=== PATIENT | male | born 1950 | race Caucasian/White ===

== ENCOUNTER 2017-03-30 13:09 | Emergency (ER) | payer MEDICARE, OTHER ==
[~2017-03-30] VITALS: Ht 177.8 cm; Wt 65.3 kg
--- NOTE | 2017-03-30 13:10 | NUR ---
PT PRESENTED TO THE ER WITH A C/O URINARY RETENTION. PT TRIED TO GIVE A URINE SAMPLE BUT WAS UNABLE. PT AMBULATED TO BED #1.
[2017-03-30] MEDS ORDERED: LIDOCAINE 2% JEL UROJET 10 ML MM ONE ×3 (13:40→14:00)
--- NOTE | 2017-03-30 13:44 | NUR ---
UROJET USED AND SIMMONS INSERTED. COUDE 16F USED. APPROX 300 ML URINE OUTPUT NOTED IMMEDIATELY.
--- NOTE | 2017-03-30 13:44 | NUR ---
16FR COUDE rodrigues catheter inserted per sterile protocal. Immediate output 300ML of urine, color YELLOW, clarity CLEAR
[2017-03-30 14:04] LABS: BASOPHILS % (AUTO) 0.5 % (0.0-2.0); EOSINOPHILS # (AUTO) 0.1 /CMM (0.0-0.7); EOSINOPHILS % (AUTO) 0.8 % (0.0-6.0); HEMATOCRIT 43 % (39-51); HEMOGLOBIN 14.6 g/dL (13.5-17.5); LYMPHOCYTES # (AUTO) 1.4 /CMM (0.8-4.8); LYMPHOCYTES % (AUTO) 15.3 % (20.0-44.0); MEAN CORPUSCULAR HEMOGLOBIN 30 PG (26.0-33.0); MEAN CORPUSCULAR HGB CONC 34 g/dl (31.0-36.0); MEAN CORPUSCULAR VOLUME 89 fL (80-96); MONOCYTES # (AUTO) 0.6 /CMM (0.1-1.30); MONOCYTES % (AUTO) 6.1 % (2.0-12.0); NEUTROPHILS # (AUTO) 7.3 /CMM (1.8-8.9); NEUTROPHILS % (AUTO) 77.3 % (43.0-81.0); PLATELET COUNT (AUTO) 295 /CMM (150-450); RDW COEFFICIENT OF VARIATION 12.6 (11.5-15.0); RED BLOOD CELL COUNT(AUTO) 4.82 MIL/uL (4.5-6.0); WHITE BLOOD COUNT (AUTO) 9.4 K/uL (4.3-11.0)
[2017-03-30 14:19] LABS: ALBUMIN 3.5 g/dL (3.4-5.0); BILIRUBIN,TOTAL 0.3 mg/dL (0.2-1.0); CALCIUM, SERUM 9.7 mg/dL (8.5-10.1); CREATININE 0.8 mg/dL (0.6-1.3); POTASSIUM 4.1 mmol/L (3.5-5.1); TOTAL PROTEIN, SERUM 7.5 g/dL (6.4-8.2)
--- NOTE | 2017-03-30 14:34 | NUR ---
700ML URINE OUTPUT TOTAL
--- NOTE | 2017-03-30 14:50 | NUR ---
PT APPEARS TO BE RESTING COMFORTABLY.
[2017-03-30 15:18] LABS: APPEARANCE,URINE Clear (CLEAR); BILIRUBIN,URINE Negative (NEGATIVE); BLOOD, URINE Negative Ery/uL (NEGATIVE); COLOR,URINE Yellow (YELLOW); KETONES,URINE Negative (NEGATIVE); LEUKOCYTE ESTERASE ,URINE Negative (NEGATIVE); NITRITE, URINE Negative (NEGATIVE); PROTEIN,URINE Negative (NEGATIVE); UGLUCOSE Negative (NEGATIVE); UROBILINOGEN,URINE 0.2 EU/dL (0.2)
--- NOTE | 2017-03-30 15:35 | NUR ---
Patient discharged to home in stable condition. Written and verbal after care instructions given. Patient verbalizes understanding of instruction AND RX. PT REC'D A LEG BAG TO TAKE HOME AND ONE PLACED ON PT'S SIMMONS. VSS.
--- NOTE | 2017-03-30 15:40 | NUR ---
TOTAL URINE OUTPUT IS 1100ML
[2017-03-30 15:41] VITALS: BP 119/68
== END 2017-03-30 15:41 | disposition home or self-care (01) ==
LOC: ER 13:11
DX: R33.9 Retention of urine, unspecified (principal); N40.0 Benign prostatic hyperplasia without lower urinary tract symptoms; F17.200 Nicotine dependence, unspecified, uncomplicated
CPT/HCPCS: 36415; 51702; 80053; 81001; 85025; 99284; A4606; J3490 ×2; 81000-TC; Z7610

== ENCOUNTER 2022-08-01 19:47 | Inpatient (IN) | payer MEDICARE, OTHER ==
[~2022-08-01] VITALS: Ht 177.8 cm; Wt 68.9 kg
--- NOTE | 2022-08-01 20:00 | NUR ---
BIBRA 79 FROM HOME FOR GENRALIZED WEAKNESS, HAND SWELLING AND R FACIAL DROOP FOR THE PAST FEW DAYS. TESTED + FOR COVID ABOUT 2 WKS AGO. PLACED IN BED, AWAKE- NOT RESPONDING TO VERBAL STIMULI, BREATHING EVEN AND UNLABORED SATURATING AT 97%RA.
--- NOTE | 2022-08-01 20:12 | NUR ---
TYLER VANN: [phone]
[2022-08-01] MEDS ORDERED: IV NS 0.9% 1,000 ML BAG IV ONE (20:30)
--- NOTE | 2022-08-01 20:31 | NUR ---
ROBERTID SWABBED, SENT TO LAB.
[2022-08-01 20:38] LABS: BASOPHILS % (AUTO) 0.1 % (0.0-2.0); EOSINOPHILS % (AUTO) 1.2 % (0.0-6.0); HEMATOCRIT 31 % (39-51); HEMOGLOBIN 10.2 g/dL (13.5-17.5); LYMPHOCYTES # (AUTO) 2.1 K/uL (0.8-4.8); LYMPHOCYTES % (AUTO) 16.4 % (20.0-44.0); MEAN CORPUSCULAR HGB CONC 33 g/dl (31.0-36.0); MEAN CORPUSCULAR VOLUME 89 fL (80-96); MONOCYTES # (AUTO) 1.5 K/uL (0.1-1.30); MONOCYTES % (AUTO) 11.6 % (2.0-12.0); NEUTROPHILS # (AUTO) 9.1 K/uL (1.8-8.9); NEUTROPHILS % (AUTO) 70.7 % (43.0-81.0); PLATELET COUNT (AUTO) 589 K/uL (150-450); RED BLOOD CELL COUNT(AUTO) 3.45 MIL/uL (4.5-6.0); WHITE BLOOD COUNT (AUTO) 12.9 K/uL (4.3-11.0)
[2022-08-01 20:55] LABS: ALANINE AMINOTRANSFERASE 23 U/L (12-78); ALBUMIN 2.2 g/dL (3.4-5.0); ALKALINE PHOSPHATASE 124 U/L (46-116); ASPARTATE AMINOTRANSFERASE 32 U/L (15-37); BILIRUBIN,DIRECT 0.1 mg/dL (0.0-0.2); BILIRUBIN,TOTAL 0.4 mg/dL (0.2-1.0); CALCIUM, SERUM 8.4 mg/dL (8.5-10.1); CARBON DIOXIDE 25 mmol/L (21-32); CHLORIDE 103 mmol/L (98-107); CREATININE 0.8 mg/dL (0.6-1.3); GLUCOSE 113 mg/dL (74-106); SODIUM SERUM 138 mmol/L (136-145); TOTAL PROTEIN, SERUM 7.1 g/dL (6.4-8.2); UREA NITROGEN, BLOOD 11 mg/dL (7-18)
[2022-08-01 20:57] LABS: SERUM AMMONIA 27 umol/L (11-32)
[2022-08-01 20:58] LABS: ACETAMINOPHEN < 10 ug/ml (10-30)
--- NOTE | 2022-08-01 21:05 | NUR ---
URINE COLLECTED, SENT TO LAB
--- NOTE | 2022-08-01 21:15 | NUR ---
BROUGHT TO CT DEPT
--- NOTE | 2022-08-01 21:18 | NUR ---
EPIC PANEL PAGED
--- NOTE | 2022-08-01 21:23 | NUR ---
KRYS SÁNCHEZ ON THE PHONE WITH DR GARCIA
[2022-08-01 21:50] LABS: BILIRUBIN,URINE NEGATIVE (NEGATIVE); COLOR,URINE YELLOW (YELLOW); LEUKOCYTE ESTERASE ,URINE NEGATIVE (NEGATIVE); NITRITE, URINE NEGATIVE (NEGATIVE); PH,URINE 7.5 (5.0-8.0); PROTEIN,URINE NEGATIVE (NEGATIVE); UGLUCOSE NEGATIVE (NEGATIVE); UROBILINOGEN,URINE 0.2 EU/dL (0.2)
--- NOTE | 2022-08-01 22:20 | NUR ---
REPORT GIVEN TO ROYAL GRANT [id number] FOR RIA
--- NOTE | 2022-08-01 22:55 | NUR ---
ELL TEACHERBED LABORER NOTE RECEIVED REPORT FROM ER NURSE RUDDY. PT IS ADMITTED TO TELE IN ROOM 326-1 WITH DIAGNOSIS OF AMS, AND FAILURE TO THRIVE. PT ARRIVES VIA GURNEY, ACCOMPANIED BY ER NURSE. PT ALERT, NON-VERBAL, UNABLE TO COMMUNICATE NEEDS. NO RESPIRATORY DISTRESS,NO SOB NOTED. PT ON ROOM AIR, TOLERATING RA WELL. IV ACCESS TO RIGHT FA #22G, PATENT, AND FLUSHING WELL. BELONGINGS CHECKED, AND BELONGING LIST PLACED IN CHART. SKIN ASSESSMENT COMPLETED. PT HAS REDNESS TO ADORE HEELS, TO SACRAL AREA, TO SCROTUM, TO PENIS, AND LEFT EYE. BILATERAL HANDS EDEMA, AND BLE PITTING EDEMA. FACIAL DROOP TO LEFT SIDE NOTED. HOB ELEVATED. SAFETY MEASURES IMPLEMENTED: BED LOCKED, IN LOW POSITION, SIDE RAILS UP X3, CALL LIGHT WITHIN REACH. WILL CONTINUE TO MONITOR PT.
[2022-08-02] VITALS: BP 161/75
[2022-08-02] MEDS ORDERED: MAGNESIUM HYDROXIDE 30 ML UDC PO PRN
[2022-08-02] MEDS ORDERED: ENOXAPARIN SODIUM 40 MG/0.4 ML DISP.SYRIN SQ SCH
[2022-08-02] MEDS ORDERED: ACETAMINOPHEN 325 MG TABLET PO PRN
[2022-08-02] MEDS ORDERED: ONDANSETRON HCL/PF 4 MG/2 ML VIAL IVP PRN
[2022-08-02] MEDS ORDERED: Z GUARD REMEDY 4 OZ OINT TP PRN
[2022-08-02 04:00] VITALS: BP 153/74
[2022-08-02 06:54] LABS: BASOPHILS % (AUTO) 0.2 % (0.0-2.0); EOSINOPHILS % (AUTO) 0.9 % (0.0-6.0); HEMATOCRIT 30 % (39-51); LYMPHOCYTES % (AUTO) 18.2 % (20.0-44.0); MEAN CORPUSCULAR HGB CONC 33 g/dl (31.0-36.0); MEAN CORPUSCULAR VOLUME 89 fL (80-96); MONOCYTES # (AUTO) 1.1 K/uL (0.1-1.30); MONOCYTES % (AUTO) 9.8 % (2.0-12.0); NEUTROPHILS # (AUTO) 7.9 K/uL (1.8-8.9); NEUTROPHILS % (AUTO) 70.9 % (43.0-81.0); PLATELET COUNT (AUTO) 566 K/uL (150-450); RED BLOOD CELL COUNT(AUTO) 3.38 MIL/uL (4.5-6.0); WHITE BLOOD COUNT (AUTO) 11.2 K/uL (4.3-11.0)
--- NOTE | 2022-08-02 06:54 | NUR ---
SOCIAL MEDIA CAMPAIGN MANAGER CLOSING NOTE LEFT PATIENT IN BED SLEEPING. PT ALERT, UNABLE TO VERBALIZED NEEDS., NONVERBAL. ON GANG PLANK WORKMAN WITH CURRENT READING : SINUS TACHY @122 BPM. HEAD OF BED ELEVATED. IV ACCESS ON RIGHT FOREARM GAUGE 20 PATENT, INTACT, AND SALINE LOCKED. NO S/S OF PAIN OR DISCOMFORT AT THIS TIME. SAFETY MEASURES MAINTAINED: BED LOCKED AND IN LOWEST POSITION, SIDE RAILS UP X 2. CALL LIGHT WITHIN REACH. WILL ENDORSE PT TO INCOMING NURSE FOR RIA.
[2022-08-02 07:00] VITALS: BP 140/85
[2022-08-02 07:40] LABS: IRON, SERUM 21 ug/dl (50-175); TOTAL IRON BINDING CAPACITY 122 ug/dl (250-450)
[2022-08-02 08:08] LABS: CALCIUM, SERUM 8.6 mg/dL (8.5-10.1); CARBON DIOXIDE 22 mmol/L (21-32); CHLORIDE 107 mmol/L (98-107); CREATININE 0.7 mg/dL (0.6-1.3); GLUCOSE 89 mg/dL (74-106); MAGNESIUM 2.1 mg/dL (1.8-2.4); PHOSPHORUS 2.8 mg/dL (2.5-4.9); POTASSIUM 3.7 mmol/L (3.5-5.1); SODIUM SERUM 139 mmol/L (136-145); UREA NITROGEN, BLOOD 8 mg/dL (7-18)
[2022-08-02 08:10] LABS: FERRITIN 732 ng/mL (8-388); THYROID STIMULATING HORMONE 1.848 uIU/mL (0.358-3.74)
--- NOTE | 2022-08-02 08:15 | NUR ---
RN OPENING NOTE PATIENT AWAKE IN BED RESTING, A/O X 0 NON-VERVAL. NO S/S OF PAIN NOTED AT THIS TIME. ON ROOM AIR, BREATHING EVEN UNLABORED, NO DISTRESS OR SHORTNESS OF BREATH NOTED. IV ACCESS RFA #20G, INTACT, PATENT AND FLUSHING WELL. PATIENT WITH EXTERNAL REGISTERED MEDICAL TRANSCRIPTIONIST WITH CURRENT READING OF ST AND HR OF 122, NO CARDIAC DISTRESS NOTED. FALL AND SAFETY MEASURES IN PLACE, BED ALARM ON, BED IN LOW AND LOCK POSITION, CALL LIGHT AND TABLE WITHIN EASY REACH, SIDE RAILS UP X2. WILL CONTINUE TO MONITOR.
[2022-08-02] MEDS: PANTOPRAZOLE 40 MG TABLET.DR PO SCH ×2 (09:23→16:11)
[2022-08-02] MEDS ORDERED: BETH50TA2 PO (10:28)
[2022-08-02] MEDS ORDERED: CYAN500T64 PO (10:28)
[2022-08-02] MEDS ORDERED: OMEP20CA15 PO (10:28)
[2022-08-02] MEDS ORDERED: FINA5TAB11 PO (10:28)
[2022-08-02] MEDS ORDERED: APIX5TAB PO (10:28)
[2022-08-02] MEDS ORDERED: ASPI-1169 PO (10:28)
[2022-08-02] MEDS ORDERED: METO25TA20 PO (10:28)
[2022-08-02] MEDS ORDERED: FLUT16SP (10:28)
[2022-08-02] MEDS ORDERED: ACET-2605 PO (10:28)
[2022-08-02] MEDS ORDERED: MEGE40TA5 PO (10:28)
[2022-08-02] MEDS ORDERED: ARIP10TA57 PO (10:28)
[2022-08-02] MEDS ORDERED: FLUTICASONE PROPIONATE 16 GM BOTTLE NS PRN (11:00)
[2022-08-02] MEDS ORDERED: ACETAMINOPHEN ES 500 MG TABLET PO PRN (11:00)
[2022-08-02] MEDS: CYANOCOBALAMIN 500 MCG TABLET PO SCH (11:00)
[2022-08-02] MEDS ORDERED: BETHANECHOL CHLORIDE 50 MG TABLET PO SCH (13:00)
[2022-08-02] MEDS: MEGESTROL ACETATE 40 MG TABLET PO SCH ×3 (13:05→18:31)
[2022-08-02] MEDS: FINASTERIDE (5 MG) 5 MG TABLET PO SCH (13:05)
[2022-08-02] MEDS: ENSURE ENLIVE 237 ML LIQUID (VANILLA) PO SCH ×2 (13:06→16:11)
[2022-08-02] MEDS: ASPIRIN 81 MG TAB.CHEW PO SCH (13:06)
[2022-08-02] MEDS: METOPROLOL TARTRATE 25 MG TABLET PO SCH ×2 (13:13→16:10)
[2022-08-02] MEDS: CLINDAMYCIN 600 MG in IV D5W 50 ML IV SCH ×2 (13:14→20:09)
--- NOTE | 2022-08-02 13:40 | NUR ---
RN NOTE PATIENT B12 VITAMIN FOR 1100 WAS NOT ADMINISTERED. MEDICATION IS NOT IN THE PYXIS, BOTH PYXIS WERE CHECKED, PHARMACY WAS CALLED X2, PHARMACY AWARE.
[2022-08-02 16:00] VITALS: BP 113/55
[2022-08-02] MEDS: BETHANECHOL CHLORIDE (25 MG) 25 MG TABLET PO SCH (16:10)
[2022-08-02] MEDS: APIXABAN 5 MG TABLET PO SCH (16:14)
--- NOTE | 2022-08-02 18:41 | NUR ---
RN CLOSING NOTE PATIENT AWAKE IN BED RESTING, A/O X 0 NON-VERBAL. NO S/S OF PAIN NOTED AT THIS TIME. ON 2L OXYGEN VIA NC, BREATHING EVEN UNLABORED, NO DISTRESS OR SHORTNESS OF BREATH NOTED. IV ACCESS RFA #20G, INTACT, PATENT AND FLUSHING WELL. PATIENT WITH EXTERNAL LEARNING STRATEGIST WITH CURRENT READING OF ST AND HR OF 120, NO CARDIAC DISTRESS NOTED. SCHEDULE MEDICATIONS ADMINISTERED. SKIN CARE IMPLEMENTED. PATIENT WAS TURNED AND REPOSITIONED PER PROTOCOL. FALL AND SAFETY MEASURES IN PLACE, BED ALARM ON, BED IN LOW AND LOCK POSITION, CALL LIGHT AND TABLE WITHIN EASY REACH, SIDE RAILS UP X2. ALL NEEDS ATTENDED AND ANTICIPATED. WILL ENDORSE TO PRINTED CIRCUIT BOARDS INSPECTOR NURSE.
--- NOTE | 2022-08-02 19:30 | NUR ---
noc rn note received patient in bed with eyes closed, arousable to pain, non-verbal . no s/s of apparent distress on 2lpm of o2 via nc. not exhibiting pain via flacc. reading sr on the tele monitor with 89 bpm at this time. right forearm #20g intact, patent, on saline lock. safety in place-- bed in lowest, locked position, side rails up X4, call light within reach, swallow precaution in place. will cont. with patient's plan of care.
[2022-08-02 20:00] VITALS: BP 97/47
[2022-08-03] VITALS: BP 120/65
[2022-08-03 03:45] VITALS: BP 120/65
[2022-08-03 04:00] VITALS: BP 122/65
[2022-08-03] MEDS: CLINDAMYCIN 600 MG in IV D5W 50 ML IV SCH (04:05)
[2022-08-03 06:26] LABS: BASOPHILS % (AUTO) 0.1 % (0.0-2.0); EOSINOPHILS % (AUTO) 1.7 % (0.0-6.0); HEMATOCRIT 30 % (39-51); HEMOGLOBIN 10.1 g/dL (13.5-17.5); LYMPHOCYTES # (AUTO) 0.8 K/uL (0.8-4.8); LYMPHOCYTES % (AUTO) 8.5 % (20.0-44.0); MEAN CORPUSCULAR HGB CONC 33 g/dl (31.0-36.0); MEAN CORPUSCULAR VOLUME 90 fL (80-96); MONOCYTES # (AUTO) 0.5 K/uL (0.1-1.30); MONOCYTES % (AUTO) 5.6 % (2.0-12.0); NEUTROPHILS # (AUTO) 8.1 K/uL (1.8-8.9); NEUTROPHILS % (AUTO) 84.1 % (43.0-81.0); PLATELET COUNT (AUTO) 559 K/uL (150-450); RED BLOOD CELL COUNT(AUTO) 3.38 MIL/uL (4.5-6.0); WHITE BLOOD COUNT (AUTO) 9.6 K/uL (4.3-11.0)
[2022-08-03 06:41] LABS: CALCIUM, SERUM 8.1 mg/dL (8.5-10.1); CARBON DIOXIDE 25 mmol/L (21-32); CHLORIDE 104 mmol/L (98-107); CREATININE 0.8 mg/dL (0.6-1.3); GLUCOSE 117 mg/dL (74-106); PHOSPHORUS 2.7 mg/dL (2.5-4.9); POTASSIUM 3.2 mmol/L (3.5-5.1); SODIUM SERUM 136 mmol/L (136-145); UREA NITROGEN, BLOOD 11 mg/dL (7-18)
[2022-08-03 07:00] VITALS: BP 134/68
--- NOTE | 2022-08-03 07:05 | NUR ---
LIGHT TECHNICIAN OPENING NOTE RECEIVED PATIENT RESTING IN BED , AROUSABLE, A/O X 0 NON-VERVAL. NO S/S OF PAIN NOTED AT THIS TIME. ON ROOM AIR, BREATHING EVEN UNLABORED, NO DISTRESS OR SHORTNESS OF BREATH NOTED. IV ACCESS RFA #20G, INTACT, PATENT AND FLUSHING WELL. PATIENT WITH EXTERNAL EXPLOSIVES MIXER OPERATOR WITH CURRENT READING OF ST AND HR OF 110, NO CARDIAC DISTRESS NOTED. FALL AND SAFETY MEASURES IN PLACE, BED ALARM ON, BED IN LOW AND LOCK POSITION, CALL LIGHT AND TABLE WITHIN EASY REACH, SIDE RAILS UP X2. WILL CONTINUE TO MONITOR.
--- NOTE | 2022-08-03 07:20 | NUR ---
noc rn closing patient in bed, with eyes closed easy to arouse. no s/s of apparent distress on 2lpm of o2 via nc. not exhibiting pain via flacc. patient IV access on saline lock, right fa #20g. reading ST 110bpm at this time. all needs attended. all scheduled meds administered. safety kept in place. report given to RUDY Ellis for continuity of patient care.
[2022-08-03] MEDS: ASPIRIN 81 MG TAB.CHEW PO SCH (08:07)
[2022-08-03] MEDS: CYANOCOBALAMIN 500 MCG TABLET PO SCH (08:07)
[2022-08-03] MEDS: FINASTERIDE (5 MG) 5 MG TABLET PO SCH (08:07)
[2022-08-03] MEDS: PANTOPRAZOLE 40 MG TABLET.DR PO SCH ×3 (08:08→17:00)
[2022-08-03] MEDS: BETHANECHOL CHLORIDE (25 MG) 25 MG TABLET PO SCH ×3 (08:08→17:00)
[2022-08-03] MEDS: MEGESTROL ACETATE 40 MG TABLET PO SCH ×3 (08:09→17:00)
[2022-08-03] MEDS: METOPROLOL TARTRATE 25 MG TABLET PO SCH ×2 (08:10→17:00)
[2022-08-03] MEDS: APIXABAN 5 MG TABLET PO SCH ×2 (08:11→17:00)
[2022-08-03] MEDS: ENSURE ENLIVE 237 ML LIQUID (VANILLA) PO SCH ×3 (08:12→17:00)
--- NOTE | 2022-08-03 09:23 | NUR ---
WOUND CARE CONSULT: PT PRESENTS WITH RASH TO GROIN FOLDS, PERINEUM AND INNER BUTTOCKS, SCARRING TO BILATERAL HIPS, AND VERY BONY SACRAL AREA, PRESENT ON ADMISSION. PT IS VERY THIN AND BONY. RECOMMENDATIONS MADE FOR SKIN PROTECTION AND SKIN CARE. DISCUSSED WITH NURSING STAFF. IN AGREEMENT WITH PLAN OF CARE. FIRST STEP LOW AIRLOSS MATTRESS IS ON ORDER. Addendum: 08/03/22 at 0925 by JANAE JHA WNDNU Amended: Links added.
[2022-08-03] MEDS ORDERED: POTASSIUM CHLORIDE 20 MEQ TAB.PRT.SR PO SCH (09:30)
[2022-08-03 11:34] LABS: ABG BASE EXCESS 1.1 mmol/L; ABG OXYGEN SATURATION 94.3 % (92.0-98.5); ABG PCO2 30.6 mmHg (35.0-45.0); ABG PH 7.504 (7.350-7.450); ABG PO2 70.1 mmHg (75.0-100.0); AaDO2 93.4 mmHg; COHb 0.6 % (0.5-1.5); MetHb 0.3 % (0.0-1.5); O2Hb 93.5 % (94.0-97.0); SITE, ABG Right Radial; VENT MODE, BG NASAL CANNULA
[2022-08-03] MEDS ORDERED: CLINDAMYCIN HCL 150 MG CAPSULE PO SCH (12:00)
[2022-08-03] MEDS: CEFTRIAXONE 1 G in IV D5W 50 ML IV SCH (12:06)
[2022-08-03] MEDS: METRONIDAZOLE 500MG/ NS 100ML 500 MG in PREMIX 1 EA IV SCH ×2 (13:31→17:25)
[2022-08-03 16:00] VITALS: BP 132/66
--- NOTE | 2022-08-03 16:50 | NUR ---
PATIENT IS NON-VERBAL. UNABLE TO CONTACT PATIENT'S SON, ([phone]) CALLED 3X SEEMS LIKE TEL LINE CONNECTION ISSUE. LEFT A MESSAGE TO SIGN IN BEHALF OF THE PATIENT FOR MRI MEDICAL HISTORY AND CONSENT
[2022-08-03] MEDS: CLOTRIMAZOLE 1% 15 GM TUBE TP SCH (17:15)
--- NOTE | 2022-08-03 19:40 | NUR ---
OCEANOLOGIST NOTES RECEIVED PATIENT IN BED WITH CLOSED EYES. OPENS HIS EYES UPON CALLING HIS NAME. PATIENT IS NON VERBAL. NO PAIN NOTED. NO FACIAL GRIMACING NOTED. ON TELE MONITOR READING S ST 105. IV ACCESS ON THE RFA G # 20 INTACT . PATIENT'S SON AND AT THE BED SIDE. THEY WERE FILLING OUT CONSENTS FOR MRI. FAMILY CONCERN FOR THE PATIENT'S UNDER EYE AND HANDS SWELLINGS. SON STATED THEY ARE WAITING FOR THE DOCTOR TO CALL THEM. GAVE THE SON THE EPIC NUMBER AND TOLD HIM THAT THE FAMILY MUST CONTACT THE DOCTOR. FAMILY WERE VERY CONCERN FOR THE PATIENT'S CONDITION. THEY SPOKE WITH OUTER DIAMETER GRINDER DOCTOR BUTCH SÁNCHEZ. ALL NEEDS ATTENDED. ALL SAFETY MEASURES IN PLACE. BED LOCKED IN THE LOWEST POSITION. CALL LIGHT AND TABLE IN EASY REACH. SIDE RAILS UP TIMES 2. GOT THE SON'S MARGARETH TELEPHONE NUMBER [phone] . I TOLD HIS SON WILL CALL HIM IF ANY UPDATES OR RIA NOTED. WILL CONTINUE TO MONITOR CLOSELY.
--- NOTE | 2022-08-03 19:45 | NUR ---
RN CLOSING NOTE PATIENT AWAKE IN BED RESTING, A/O X 0 NON-VERBAL. NO S/S OF PAIN NOTED AT THIS TIME. ON 2L OXYGEN VIA NC, BREATHING EVEN UNLABORED, NO DISTRESS OR SHORTNESS OF BREATH NOTED. IV ACCESS RFA #20G, INTACT, PATENT AND FLUSHING WELL. PATIENT WITH EXTERNAL LANG INTERPRETER WITH CURRENT READING OF ST AND HR OF 111, NO CARDIAC DISTRESS NOTED. SCHEDULE MEDICATIONS ADMINISTERED. SKIN CARE IMPLEMENTED. PATIENT WAS TURNED AND REPOSITIONED PER PROTOCOL. FALL AND SAFETY MEASURES IN PLACE, BED ALARM ON, BED IN LOW AND LOCK POSITION, CALL LIGHT AND TABLE WITHIN EASY REACH, SIDE RAILS UP X2. ALL NEEDS ATTENDED AND ANTICIPATED. PATIENT'S FAMILY ON BEDSIDE, NOTED AND SIGNED MRI MEDICAL HISTORY FORM. PATIENT ENDORSED TO THE CAKE DECORATOR NURSE FOR RIA.
[2022-08-03] MEDS: IV NS 0.9% 1,000 ML IV PRN (20:21)
[2022-08-03] MEDS: ENOXAPARIN SODIUM 60 MG/0.6 ML DISP.SYRIN SQ SCH (20:31)
[2022-08-03 20:39] VITALS: BP_SYST 130; BP_SYST 142; BP_DIAS 73; BP_DIAS 85
--- NOTE | 2022-08-03 21:00 | NUR ---
RN NOTES INFORMED BUTCH SÁNCHEZ FOR THE FAMILY CONCERNS OF SWELLING OF THE HANDS AND UNDER EYE . ALSO FACIAL REDNESS. STARTED IV HYDRATION OF NS AT 75 ML/HR. PER ORDER AT 2029. NO NEW ORDER WAS GIVEN. WILL CONTINUE TO MONITOR CLOSELY FOR ANY CHANGES.
[2022-08-04] MEDS: METRONIDAZOLE 500MG/ NS 100ML 500 MG in PREMIX 1 EA IV SCH ×5 (00:02→23:26)
[2022-08-04 00:50] VITALS: BP 134/84
[2022-08-04 04:26] VITALS: BP 105/71
[2022-08-04 06:41] LABS: CALCIUM, SERUM 8.5 mg/dL (8.5-10.1); CARBON DIOXIDE 24 mmol/L (21-32); CHLORIDE 109 mmol/L (98-107); CREATININE 0.8 mg/dL (0.6-1.3); GLUCOSE 88 mg/dL (74-106); MAGNESIUM 2.3 mg/dL (1.8-2.4); PHOSPHORUS 3.4 mg/dL (2.5-4.9); POTASSIUM 3.7 mmol/L (3.5-5.1); SODIUM SERUM 142 mmol/L (136-145); UREA NITROGEN, BLOOD 14 mg/dL (7-18)
[2022-08-04 06:54] LABS: BASOPHILS % (AUTO) 0.2 % (0.0-2.0); EOSINOPHILS % (AUTO) 3.4 % (0.0-6.0); HEMATOCRIT 33 % (39-51); HEMOGLOBIN 10.8 g/dL (13.5-17.5); LYMPHOCYTES # (AUTO) 0.9 K/uL (0.8-4.8); LYMPHOCYTES % (AUTO) 10.1 % (20.0-44.0); MEAN CORPUSCULAR HGB CONC 33 g/dl (31.0-36.0); MEAN CORPUSCULAR VOLUME 92 fL (80-96); MONOCYTES % (AUTO) 10.8 % (2.0-12.0); NEUTROPHILS # (AUTO) 6.9 K/uL (1.8-8.9); NEUTROPHILS % (AUTO) 75.5 % (43.0-81.0); PLATELET COUNT (AUTO) 660 K/uL (150-450); RED BLOOD CELL COUNT(AUTO) 3.62 MIL/uL (4.5-6.0); WHITE BLOOD COUNT (AUTO) 9.2 K/uL (4.3-11.0)
[2022-08-04 07:00] VITALS: BP 161/89
--- NOTE | 2022-08-04 07:30 | NUR ---
MAC DEVELOPER CLOSING NOTES PATIENT IN BED WITH CLOSED EYES. OPENS HIS EYES UPON CALLING HIS NAME. PATIENT IS NON VERBAL. NO PAIN NOTED. NO FACIAL GRIMACING NOTED. ON TELE MONITOR READING ST 110. IV ACCESS ON THE RFA G # 20 INTACT .RUNNING NS AT 75 ML/HR. ALL DUE MEDS GIVEN ORDERED.LOW GRADE FEVER NOTED. COOLING MEASURES DONE. ALL NEEDS ATTENDED. ALL SAFETY MEASURES IN PLACE. BED LOCKED IN THE LOWEST POSITION. CALL LIGHT AND TABLE IN EASY REACH. SIDE RAILS UP TIMES 2. HOB ELEVATED FOR ASPIRATION PRECAUTION. GOT THE SON'S MARGARETH TELEPHONE NUMBER [phone] . WILL ENDORDE FOR RIA.
--- NOTE | 2022-08-04 07:35 | NUR ---
ms rn received pt on bed, sleeping, non verbal patient, came in w/ failure to thrive,room air, sinus rythm, sinus tach on tele, respirations even and unlabored, abdomen soft/ positive bowel sounds, no s/s of pain at this time, repositioned for comfort, will monitor patient.
--- NOTE | 2022-08-04 07:50 | NUR ---
MRI ON HOLD PER DR. PAGAN, HE WILL LET US KNOW.
--- NOTE | 2022-08-04 08:30 | NUR ---
ms rn patient npo art this time, meds held.
[2022-08-04] MEDS: CLOTRIMAZOLE 1% 15 GM TUBE TP SCH ×2 (09:00→17:46)
[2022-08-04] MEDS: APIXABAN 5 MG TABLET PO SCH ×2 (09:00→17:27)
--- NOTE | 2022-08-04 10:30 | NUR ---
ms rn was seen by brittney sheriff/lew to feed patient, family at bed side, patient tolerating puree diet well.
[2022-08-04] MEDS: PANTOPRAZOLE 40 MG TABLET.DR PO SCH (11:15)
[2022-08-04] MEDS: MEGESTROL ACETATE 40 MG TABLET PO SCH ×3 (11:16→17:27)
[2022-08-04] MEDS: BETHANECHOL CHLORIDE (25 MG) 25 MG TABLET PO SCH ×3 (11:17→17:27)
[2022-08-04] MEDS: ASPIRIN 81 MG TAB.CHEW PO SCH (11:17)
[2022-08-04] MEDS: METOPROLOL TARTRATE 25 MG TABLET PO SCH ×2 (11:17→17:28)
[2022-08-04] MEDS: FINASTERIDE (5 MG) 5 MG TABLET PO SCH (11:17)
[2022-08-04] MEDS: CYANOCOBALAMIN 500 MCG TABLET PO SCH (11:18)
[2022-08-04] MEDS: ENOXAPARIN SODIUM 60 MG/0.6 ML DISP.SYRIN SQ SCH (11:19)
[2022-08-04] MEDS ORDERED: METOPROLOL TARTRATE INJ 5 MG/5 ML AMPUL IVP ONE (11:30)
[2022-08-04 12:00] VITALS: BP 112/55
[2022-08-04] MEDS: ENSURE ENLIVE 237 ML LIQUID (VANILLA) PO SCH ×3 (12:28→17:47)
[2022-08-04] MEDS: CEFTRIAXONE 1 G in IV D5W 50 ML IV SCH (12:50)
[2022-08-04] MEDS: IV NS 0.9% 1,000 ML IV PRN (12:54)
[2022-08-04] MEDS ORDERED: METOPROLOL TARTRATE INJ 5 MG/5 ML AMPUL IVP PRN (14:30)
--- NOTE | 2022-08-04 17:55 | NUR ---
ms rn due meds given, repositioned for comfort, no distress noted, all needs attended.
--- NOTE | 2022-08-04 19:50 | NUR ---
CONSTRUCTION MGR OPENING NOTES RECEIVED PATIENT IN BED WITH CLOSED EYES. OPENS HIS EYES UPON CALLING HIS NAME. PATIENT IS NON VERBAL. NO PAIN NOTED. NO FACIAL GRIMACING NOTED. ON TELE MONITOR READING ST 110. IV ACCESS ON THE RFA #20G RUNNING NS AT 75 ML/HR, INFUSING WELL. WILL MAINTAIN SAFETY MEASURES WITH BED LOCKED AND LOWEST POSITION. CALL LIGHT AND TABLE IN EASY REACH. SIDE RAILS UP X 2. HOB ELEVATED FOR ASPIRATION PRECAUTION. WILL MONITOR THE PATIENT AND WILL CARRY OUT ANY ONGOING AND ACTIVE MD ORDERS.
[2022-08-04 20:00] VITALS: BP 111/59
[2022-08-04 22:00] VITALS: BP 111/59
[2022-08-05] VITALS: BP 129/87
[2022-08-05 04:00] VITALS: BP 149/76
[2022-08-05] MEDS: IV NS 0.9% 1,000 ML IV PRN (04:25)
[2022-08-05] MEDS: METRONIDAZOLE 500MG/ NS 100ML 500 MG in PREMIX 1 EA IV SCH (05:11)
[2022-08-05 06:39] LABS: BASOPHILS % (AUTO) 0.2 % (0.0-2.0); EOSINOPHILS % (AUTO) 4.4 % (0.0-6.0); HEMATOCRIT 30 % (39-51); LYMPHOCYTES # (AUTO) 1.1 K/uL (0.8-4.8); MEAN CORPUSCULAR HGB CONC 33 g/dl (31.0-36.0); MEAN CORPUSCULAR VOLUME 89 fL (80-96); MONOCYTES % (AUTO) 9.9 % (2.0-12.0); NEUTROPHILS # (AUTO) 7.6 K/uL (1.8-8.9); NEUTROPHILS % (AUTO) 74.5 % (43.0-81.0); PLATELET COUNT (AUTO) 604 K/uL (150-450); WHITE BLOOD COUNT (AUTO) 10.3 K/uL (4.3-11.0)
[2022-08-05 06:44] LABS: CALCIUM, SERUM 7.9 mg/dL (8.5-10.1); CREATININE 0.7 mg/dL (0.6-1.3); MAGNESIUM 2.2 mg/dL (1.8-2.4); PHOSPHORUS 2.2 mg/dL (2.5-4.9); POTASSIUM 3.7 mmol/L (3.5-5.1)
--- NOTE | 2022-08-05 07:14 | NUR ---
PRESCHOOL SPECIAL EDUCATION TEACHER CLOSING NOTES PATIENT IN BED WITH CLOSED EYES. PATIENT IS NON VERBAL. NO PAIN NOTED. NO FACIAL GRIMACING NOTED. ON TELE MONITOR READING ST @ 103. IV ACCESS ON THE RFA #20G RUNNING NS AT 75 ML/HR, INFUSING WELL. SAFETY MEASURES MAINTAINED WITH BED LOCKED AND LOWEST POSITION. CALL LIGHT AND TABLE IN EASY REACH. SIDE RAILS UP X 2. HOB ELEVATED FOR ASPIRATION PRECAUTION. WILL ENDORSE TO THE NEXT SHIFT.
--- NOTE | 2022-08-05 07:25 | NUR ---
ms rn received on bed, sleeping, arousable, on room air w/ 97% saturation, came in w/ failure to thrive, contracted upper and lower extremities,repositioned for comfort, all needs attended.
[2022-08-05 08:00] VITALS: BP 157/71
[2022-08-05] MEDS ORDERED: NEUTRA PHOS 1 POWD.PACKET PO ONE (09:00)
[2022-08-05] MEDS: FINASTERIDE (5 MG) 5 MG TABLET PO SCH (09:33)
[2022-08-05] MEDS: BETHANECHOL CHLORIDE (25 MG) 25 MG TABLET PO SCH ×3 (09:33→16:49)
[2022-08-05] MEDS: CYANOCOBALAMIN 500 MCG TABLET PO SCH (09:33)
[2022-08-05] MEDS: MEGESTROL ACETATE 40 MG TABLET PO SCH ×3 (09:33→16:53)
[2022-08-05] MEDS: ASPIRIN 81 MG TAB.CHEW PO SCH (09:33)
[2022-08-05] MEDS: METOPROLOL TARTRATE 25 MG TABLET PO SCH ×2 (09:34→16:53)
[2022-08-05] MEDS: APIXABAN 5 MG TABLET PO SCH ×2 (09:35→16:51)
[2022-08-05] MEDS: ENSURE ENLIVE 237 ML LIQUID (VANILLA) PO SCH ×3 (09:35→17:01)
--- NOTE | 2022-08-05 09:40 | NUR ---
ms bolton breakfast served,due meds given,tolerated well.
[2022-08-05] MEDS: PANTOPRAZOLE 40 MG TABLET.DR PO SCH (09:48)
[2022-08-05] MEDS: CLOTRIMAZOLE 1% 15 GM TUBE TP SCH ×2 (09:48→17:01)
[2022-08-05] MEDS: CEFTRIAXONE 1 G in IV D5W 50 ML IV SCH (11:50)
[2022-08-05] MEDS: METRONIDAZOLE 500 MG TABLET PO SCH ×2 (13:49→17:01)
--- NOTE | 2022-08-05 14:57 | NUR ---
ms rn went down to mri.
--- NOTE | 2022-08-05 15:30 | NUR ---
ms rn texted wil, mri can not be done, due to pt's neck is contracted.
[2022-08-05 16:02] VITALS: BP 115/54
[2022-08-05 16:53] VITALS: BP 115/55
[2022-08-05] MEDS ORDERED: ATOR10TA PO (16:54)
[2022-08-05] MEDS ORDERED: AMOX-427 PO (16:54)
--- NOTE | 2022-08-05 17:30 | NUR ---
ms rn order for discharge home w/ home health, will call transportation.
--- NOTE | 2022-08-05 20:11 | NUR ---
SENIOR CHEMICAL ENGINEER OPENING/DISCHARGE NOTE RECEIVED PATIENT IN BED, AWAKE, ALERT AND ORIENTED X2. AFEBRILE AND NOT IN ANY FORM OF ACUTE DISTRESS. BREATHING EVEN AND NON LABORED. WITH IV ACCESS ON RIGHT FOREARM 20G RUNNING WITH NS AT 75ML/HR. PER ENDORSEMENT, PATIENT IS FOR DISCHARGE TODAY AND DISCHARGE INSTRUCTIONS WAS ALREADY GIVEN TO SOO SCOTT AND ADVISED THAT MEDICATION IS AVAILABLE FOR SWIMMING INSTRUCTOR IN THE PHARMACY. [facility] STAFFS CAME AT AROUND 1945 TO SWIMMING INSTRUCTOR THE PATIENT AND REPORT WAS GIVEN TO AZEB. IV ACCESS REMOVED, TOLERATED WELL AND NO BLEEDING WAS NOTED ON THE SITE. TELE MONITORING BOX ALSO REMOVED. ALL BELONGINGS ACCOUNTED AND ENDORSED TO A PERSONNEL. VITALS TAKEN AND WNL. LEFT AT AROUND 2000 IN STABLE CONDITION. UPDATED SON TYLER.
[2022-08-05] MEDS ORDERED: ATORVASTATIN 10 MG TABLET PO SCH (22:00)
== END 2022-08-05 20:05 | disposition home health service (06) | DRG 871 ==
LOC: ER 19:49 → TELE 22:12
PROVIDERS: ADMIT Nurse Practitioner Family; ATTEND Nurse Practitioner Acute Care
DX: A41.9 Sepsis, unspecified organism (principal); E43 Unspecified severe protein-calorie malnutrition; J69.0 Pneumonitis due to inhalation of food and vomit; J98.11 Atelectasis; R62.7 Adult failure to thrive; G20 Parkinson's disease; F02.80 Dementia in other diseases classified elsewhere, unspecified severity, without behavioral disturbance, psychotic disturbance, mood disturbance, and anxiety; I10 Essential (primary) hypertension; Z86.16 Personal history of COVID-19; N40.0 Benign prostatic hyperplasia without lower urinary tract symptoms; Z85.038 Personal history of other malignant neoplasm of large intestine; Z90.49 Acquired absence of other specified parts of digestive tract; D64.9 Anemia, unspecified; D75.839 Thrombocytosis, unspecified; R73.9 Hyperglycemia, unspecified; E88.09 Other disorders of plasma-protein metabolism, not elsewhere classified; I48.91 Unspecified atrial fibrillation; Z79.01 Long term (current) use of anticoagulants; Z79.899 Other long term (current) drug therapy; Z86.73 Personal history of transient ischemic attack (TIA), and cerebral infarction without residual deficits; Z79.82 Long term (current) use of aspirin; Z79.51 Long term (current) use of inhaled steroids; J32.2 Chronic ethmoidal sinusitis; J32.3 Chronic sphenoidal sinusitis; B96.89 Other specified bacterial agents as the cause of diseases classified elsewhere; R09.02 Hypoxemia
CPT/HCPCS: 36415; 36600; 70450-TC; 71045-TC; 80048-TC; 80076-TC; 82140-TC; 82607-TC; 82728-TC; 82803-TC; 82962-TC; 83540-TC; 83605-TC; 83735-TC; 84100-TC; 84443-TC; 84484-TC; 85025-TC; 85730-TC; 87040-TC; 87081-TC; 92526; 92611-TC; 93307-TC; 93971-TC; 97110-TC; 97112-TC; 97530-TC; A4216; A4223; A4349; C9803; G0378; J0696; J1650; J3490; J7030; J7050; J7060

== ENCOUNTER 2022-08-24 13:21 | Inpatient (IN) | payer MEDICARE, OTHER ==
[~2022-08-24] VITALS: Ht 167.6 cm; Wt 50.8 kg
[~2022-08-24 13:21] MED LIST: ACET-2605 PO; AMOX-427 PO; APIX5TAB PO; ARIP10TA57 PO; ASPI-1169 PO; ATOR10TA PO; BETH50TA2 PO; CYAN500T64 PO; FINA5TAB11 PO; FLUT16SP; MEGE40TA5 PO; METO25TA20 PO; OMEP20CA15 PO
--- NOTE | 2022-08-24 13:25 | NUR ---
RECEIVED PT 72 YRS MALE CAME FROM HOME BY YAYA HUDSON IN BOTH BOTH 3MIDLE TOES AND LT LEG 2 MEDLE TOE WITH WITH REDNESS AND SWALLEN ON RT FOOT
--- NOTE | 2022-08-24 13:30 | NUR ---
INSERTED ANGO CATHETER G 18 ON LT FOR ARM , BLOOD DROW BY LAB TACH AND BC SENT AND LACTICT SENT
--- NOTE | 2022-08-24 13:47 | NUR ---
Jamey Davison ph. [phone] Son requesting call back from MD ROBBIN aware
[2022-08-24] MEDS ORDERED: IV NS 0.9% 1,000 ML IV ONE (14:00)
--- NOTE | 2022-08-24 14:10 | NUR ---
CHRISTIANA LEWIS SENT TO LAB
[2022-08-24 14:12] LABS: BASOPHILS # (AUTO) 0.1 K/uL (0.0-0.2); BASOPHILS % (AUTO) 1.3 % (0.0-2.0); EOSINOPHILS % (AUTO) 1.6 % (0.0-6.0); HEMATOCRIT 33 % (39-51); HEMOGLOBIN 10.8 g/dL (13.5-17.5); LYMPHOCYTES # (AUTO) 1.7 K/uL (0.8-4.8); LYMPHOCYTES % (AUTO) 15.9 % (20.0-44.0); MEAN CORPUSCULAR HGB CONC 33 g/dl (31.0-36.0); MEAN CORPUSCULAR VOLUME 91 fL (80-96); MONOCYTES # (AUTO) 0.7 K/uL (0.1-1.30); MONOCYTES % (AUTO) 6.6 % (2.0-12.0); NEUTROPHILS % (AUTO) 74.6 % (43.0-81.0); PLATELET COUNT (AUTO) 664 K/uL (150-450); RED BLOOD CELL COUNT(AUTO) 3.64 MIL/uL (4.5-6.0); WHITE BLOOD COUNT (AUTO) 10.7 K/uL (4.3-11.0)
--- NOTE | 2022-08-24 14:16 | NUR ---
MOVE SHEET SUBMITTED.
[2022-08-24 14:20] LABS: CALCIUM, SERUM 8.6 mg/dL (8.5-10.1); CARBON DIOXIDE 24 mmol/L (21-32); CHLORIDE 102 mmol/L (98-107); CREATININE 0.9 mg/dL (0.6-1.3); GLUCOSE 117 mg/dL (74-106); POTASSIUM 3.9 mmol/L (3.5-5.1); SODIUM SERUM 133 mmol/L (136-145); UREA NITROGEN, BLOOD 12 mg/dL (7-18)
[2022-08-24] MEDS ORDERED: PSEU30TA34 PO (14:20)
[2022-08-24] MEDS ORDERED: PROM118S5 PO (14:20)
[2022-08-24] MEDS ORDERED: CARB1TAB21 PO (14:20)
--- NOTE | 2022-08-24 14:32 | NUR ---
LACTIC ACID 2.2 MD AWARE
[2022-08-24 14:35] LABS: ALANINE AMINOTRANSFERASE 22 U/L (12-78); ALBUMIN 2.2 g/dL (3.4-5.0); ALKALINE PHOSPHATASE 133 U/L (46-116); ASPARTATE AMINOTRANSFERASE 45 U/L (15-37); BILIRUBIN,DIRECT 0.1 mg/dL (0.0-0.2); BILIRUBIN,TOTAL 0.3 mg/dL (0.2-1.0); TOTAL PROTEIN, SERUM 7.9 g/dL (6.4-8.2)
--- NOTE | 2022-08-24 14:48 | NUR ---
[facility] CALLED ROPE RIDER PAGED.
[2022-08-24] MEDS ORDERED: PIPERACILLIN /TAZOBACTAM 3.375 G in IV D5W 50 ML IV ONE (15:00)
[2022-08-24] MEDS ORDERED: VANCOMYCIN 1 GM in IV D5W 250 ML IV ONE (15:00)
--- NOTE | 2022-08-24 15:05 | NUR ---
GOT BED 327-1 ADMITTING INFORMED.
[2022-08-24] MEDS ORDERED: PSEUDOEPHEDRINE HCL 30 MG TABLET PO PRN (16:00)
[2022-08-24] MEDS ORDERED: FLUTICASONE PROPIONATE 16 GM BOTTLE NS PRN (16:00)
[2022-08-24] MEDS ORDERED: ACETAMINOPHEN 325 MG TABLET PO PRN (16:00)
[2022-08-24] MEDS ORDERED: D-METHORPHAN HB/PROMETH HCL 5 ML UDC PO PRN (16:00)
[2022-08-24] MEDS ORDERED: HYDROCODONE/APAP 5/325MG TABLET PO PRN (16:00)
[2022-08-24] MEDS ORDERED: MORPHINE SULFATE INJ 2 MG/ML DISP.SYRIN IV PRN (16:00)
[2022-08-24] MEDS ORDERED: ONDANSETRON HCL/PF 4 MG/2 ML VIAL IVP PRN (16:00)
[2022-08-24] MEDS ORDERED: MAGNESIUM HYDROXIDE 30 ML UDC PO PRN (16:00)
[2022-08-24] MEDS ORDERED: MAG HYDROX/AL HYDROX/SIMETH 30 ML UDC PO PRN (16:00)
[2022-08-24] MEDS ORDERED: Z GUARD REMEDY 4 OZ OINT TP PRN (16:00)
--- NOTE | 2022-08-24 16:26 | NUR ---
HAND OFF AMARILIS RN TO ROOM 327-1 VIA KYLE [place]
[2022-08-24] MEDS: IV NS 0.9% 1,000 ML IV PRN (16:56)
[2022-08-24] MEDS ORDERED: OMEPRAZOLE 20 MG CAPSULE.DR PO SCH (17:00)
--- NOTE | 2022-08-24 17:00 | NUR ---
MS RN ADMITTING NOTES ADMITTED THIS 72 YO MALE TO UNIT AT 1635 VIA GURNEY WITH DX OF BILATERAL FOOT GANGRENE. PT IS AOX1, NON-VERBAL, UNABLE TO MAKE NEEDS KNOWN. ON ROOM AIR, BREATHING WITHOUT ANY DIFFICULTY. UNABLE TO ASSESS ORIENTATION TO ROOM. NODS TO FIJIAN BUT DIDNT RESPOND TO PERSIAN WHEN ASKED FOR HIS LANGUAGE, TYLER SON CONFIRMS THAT HE SPOKE THOSE LANGUAGES BUT THERES NO COMPREHENSION ANYMORE. VS TAKEN, STABLE, RECORDED. SEVERE CONTRACTIONS OF ALL EXTREMITIES. SKIN ISSUES NOTED, PICTURES TAKEN. APPLIED OPTIFOAM TO PROTECT AREAS, OFFLOADED. AWAITING WOUND CONSULT. IV ACCESS ON LFA G#18 PATENT, FLUSHING WELL WITH NS RUNNING AT 75 ML/HR AND VANCOMYCIN FROM ER. LUNGS DIMINISHED ON AUSCULTATION BILATERALLY. ABDOMEN SOFT, NON-TENDER AND NOT DISTENDED WITH + BOWELS SOUNDS ON ALL FOUR QUADRANTS. SAFETY MEASURES IMPLEMENTED: BED PLACED IN LOCKED AND LOWEST POSITION, SIDE RAILS UP X2, BED ALARM ON, TRAY TABLE AND CALL LIGHT WITHIN EASY REACH. WILL CONTINUE TO MONITOR.
[2022-08-24] MEDS: CARBIDOPA/LEVODOPA 25/100 MG 1 UDTAB PO SCH ×2 (17:35→20:16)
[2022-08-24] MEDS: BETHANECHOL CHLORIDE (25 MG) 25 MG TABLET PO SCH (17:36)
[2022-08-24] MEDS: METOPROLOL TARTRATE 25 MG TABLET PO SCH (17:36)
[2022-08-24] MEDS: MEGESTROL ACETATE 40 MG TABLET PO SCH (17:36)
[2022-08-24] MEDS: APIXABAN 5 MG TABLET PO SCH (17:37)
[2022-08-24 18:23] VITALS: BP 116/71
--- NOTE | 2022-08-24 19:00 | NUR ---
RN OPENING NOTE RECEIVED PT. ASLEEP IN BED. PT IS A/OX1, NON-VERBAL, MALAY AND CAMBODIAN SPEAKING. PT IS IN RA, TOLERATING WELL, BREATHING AND UNLABORED @ THIS TIME. PT IV PRESENT ON LFA @18G RUNNING NS @ 75MLS/HR, PATENT, INTACT AND FLUSHES WELL W/ N S&SX OF INFILTRATION @ SITE NOTED. SAFETY MEASURES IS IN PLACE. BED PLACED AT ITS LOWEST AND LOCKED POSITION. SIDE RAILS UP X 3. BEDSIDE TABLE AND CALL LIGHT IS EASY REACH. BED ALARM IS ON. WILL CONTINUE TO MONITOR PT ACCORDINGLY.
--- NOTE | 2022-08-24 19:25 | NUR ---
MS RN CLOSING NOTES PATIENT IN BED WITH HOB ELEVATED, AOX1, CALM, NOT IN ANY FORM OF DISTRESS AT THE MOMENT. NO S/SX OF PAIN NOTED. STILL ON ROOM AIR WITHOUT DIFFICULTY. ALL DUE MEDS GIVEN, ALL NEEDS MET. 1SAFETY MEASURES MAINTAINED: BED PLACED IN LOCKED AND LOWEST POSITION, SIDE RAILS UP X2, BED ALARM ON, TRAY TABLE AND CALL LIGHT WITHIN EASY REACH. ENDORSED TO PLANT EQUIPMENT ENGINEER NURSE.
[2022-08-24 20:34] VITALS: BP 123/62
[2022-08-24 22:34] VITALS: BP 123/62
[2022-08-25] MEDS: VANCOMYCIN HCL 0.75 GM in IV D5W 250 ML IV SCH ×2 (04:03→16:32)
[2022-08-25 05:55] LABS: BASOPHILS # (AUTO) 0.1 K/uL (0.0-0.2); BASOPHILS % (AUTO) 1.2 % (0.0-2.0); EOSINOPHILS % (AUTO) 2.6 % (0.0-6.0); HEMATOCRIT 32 % (39-51); HEMOGLOBIN 10.3 g/dL (13.5-17.5); LYMPHOCYTES # (AUTO) 2.3 K/uL (0.8-4.8); LYMPHOCYTES % (AUTO) 23.6 % (20.0-44.0); MEAN CORPUSCULAR HGB CONC 33 g/dl (31.0-36.0); MEAN CORPUSCULAR VOLUME 91 fL (80-96); MONOCYTES # (AUTO) 0.7 K/uL (0.1-1.30); MONOCYTES % (AUTO) 7.6 % (2.0-12.0); NEUTROPHILS # (AUTO) 6.4 K/uL (1.8-8.9); PLATELET COUNT (AUTO) 607 K/uL (150-450); RED BLOOD CELL COUNT(AUTO) 3.47 MIL/uL (4.5-6.0); WHITE BLOOD COUNT (AUTO) 9.9 K/uL (4.3-11.0)
[2022-08-25 06:28] LABS: CALCIUM, SERUM 8.6 mg/dL (8.5-10.1); CARBON DIOXIDE 23 mmol/L (21-32); CHLORIDE 105 mmol/L (98-107); CREATININE 0.7 mg/dL (0.6-1.3); GLUCOSE 114 mg/dL (74-106); PHOSPHORUS 2.8 mg/dL (2.5-4.9); POTASSIUM 3.6 mmol/L (3.5-5.1); SODIUM SERUM 137 mmol/L (136-145); UREA NITROGEN, BLOOD 10 mg/dL (7-18)
--- NOTE | 2022-08-25 06:36 | NUR ---
RN CLOSING NOTE PT IS ASLEEP AND RESTING COMFORTABLY IN BED. PT IS A/O X 1. PT IS IN RA W/ NO S&SX OF RESPIRATORY DISTRESS NOTED @ THIS TIME. PT IV PRESENT ON LEFT FA #18G RUNNING NS @ 100MLS/HR, PATENT, INTACT AND FLUSHES WELL WITH NO S &SX OF INFILTRATION. PT DIAPER CHANGE 3X, KEPT CLEAN, DRY AND COMFORTABLE. ADMINISTERED MEDICATION ACCORDINGLY PER MD'S ORDER. VITAL SIGNS TAKEN AND DOCUMENTED. ALL NEEDS ATTENDED. SAFETY MEASURES IS IN PLACE. BED AT LOWEST AND LOCKED POSITION. SIDE RAILS UP X 3. BEDSIDE TABLE AND CALL LIGHT IS EASY REACH. BED ALARM IS ON. WILL ENDORSE TO THE NEXT SHIFT FOR CONTINUITY OF CARE.
--- NOTE | 2022-08-25 07:07 | NUR ---
MS PAPER CUP MACHINE TENDER OPENING NOTE RECEIVED PATIENT SLEEPING, A/ OX1, NON VERBAL, BUT HE RESPOND TO VERBAL AND TACTICAL STIMULI. ON ROOM AIR, NO S/S OF RESPIRATORY DISTRESS NOTED. IV ACCESS LFA#18G RUNNING NS AT 75ML/HR. BED BOUND, INCONTINENT USED DIAPER. SKIN ISSUES: BILATERAL FOOT GANGRENE. SAFETY MEASURES IN PLACE: BED LOCK AND IN LOWEST POSITION, CALL LIGHT WITHIN REACH, SIDE RAILS UP X3, HOB ELEVATED, CONTINUING TO MONITOR
[2022-08-25 08:00] VITALS: BP 136/69
[2022-08-25] MEDS: PANTOPRAZOLE 40 MG TABLET.DR PO SCH (08:19)
[2022-08-25] MEDS: APIXABAN 5 MG TABLET PO SCH ×2 (08:21→17:08)
[2022-08-25] MEDS: METOPROLOL TARTRATE 25 MG TABLET PO SCH ×2 (08:22→17:00)
[2022-08-25] MEDS: FINASTERIDE (5 MG) 5 MG TABLET PO SCH (08:22)
[2022-08-25] MEDS: BETHANECHOL CHLORIDE (25 MG) 25 MG TABLET PO SCH ×3 (08:22→17:13)
[2022-08-25] MEDS: MEGESTROL ACETATE 40 MG TABLET PO SCH ×3 (08:22→17:08)
[2022-08-25] MEDS: CYANOCOBALAMIN 500 MCG TABLET PO SCH (08:22)
[2022-08-25] MEDS: ASPIRIN 81 MG TAB.CHEW PO SCH (08:22)
[2022-08-25] MEDS: CARBIDOPA/LEVODOPA 25/100 MG 1 UDTAB PO SCH ×4 (08:22→20:29)
[2022-08-25] MEDS: ARIPIPRAZOLE 5 MG TABLET PO SCH (08:23)
[2022-08-25] MEDS: ENSURE ENLIVE 237 ML LIQUID (VANILLA) PO SCH ×2 (08:24→17:14)
--- NOTE | 2022-08-25 09:10 | NUR ---
WOUND CARE CONSULT: PT PRESENTS WITH BLACK NECROTIC TISSUE TO TOES ON BILATERAL FEET WELL RT HIP PRESSURE ULCER OVER PREVIOUS SCARRING, PRESENT ON ADMISSION. RECOMMENDATIONS MADE FOR SKIN PROTECTION AND WOUND CARE OF RT HIP. DISCUSSED WITH NURSING STAFF. DR HARRIS CALLED FOR DPM CONSULT. FIRST STEP LOW AIRLOSS MATTRESS IS ON ORDER. PT IS SEVERELY CONTRACTED. PT IS INCONTINENT. MD IN AGREEMENT WITH PLAN OF CARE.
[2022-08-25] MEDS ORDERED: HYDROGEL DRESSING 90 GM TUBE TP PRN (09:30)
[2022-08-25] MEDS: HYDROGEL DRESSING 90 GM TUBE TP SCH (10:49)
[2022-08-25] MEDS: IV NS 0.9% 1,000 ML IV PRN (11:46)
[2022-08-25 16:00] VITALS: BP 105/56
[2022-08-25] MEDS: CLOTRIMAZOLE 1% 15 GM TUBE TP SCH (17:12)
--- NOTE | 2022-08-25 18:58 | NUR ---
MS OUTSIDE INSTALLATION MACHINIST CLOSING NOTE PATIENT RESTING IN BED, A/ OX1, NON VERBAL, BUT RESPONDS TO VERBAL AND TACTICAL STIMULI. STABLE ON ROOM AIR, NO S/S OF RESPIRATORY DISTRESS NOTED. IV ACCESS LFA#18G RUNNING NS AT 75ML/HR. BED BOUND, INCONTINENT HAS CONDOM CATH DRAINING DARK YELLOW URINE 300CC. SKIN ISSUES: BILATERAL FOOT GRANGRENE, R HIP SKIN TEAR. DRESSINGS IN PLACE. SAFETY MEASURES MAINTAINED: BED LOCKED AND IN LOWEST POSITION, CALL LIGHT WITHIN REACH, SIDE RAILS UP X3, HOB ELEVATED. WILL ENDORSE TO NEXT SHIFT ANY RIA.
--- NOTE | 2022-08-25 19:30 | NUR ---
MS RN OPENING NOTE RECEIVED PT AWAKE IN BED. A/O X1, NON VERBAL, AND GABONESE SPEAKING. FAMILY AT BEDSIDE. PT STABLE ON ROOM AIR. NO SOB OR S/S OF RESPIRATORY DISTRESS. BREATHING EVEN AND UNLABORED. IV ACCESS LFA 18G, INTACT AND PATENT, RUNNING NS @ 75 ML/HR. WITH CONDOM CATH DRAINING URINE BY GRAVITY. BILATERAL FOOT DRESSINGS C/D/I. SAFETY PRECAUTIONS IN PLACE. BED IN LOWEST LOCKED POSITION, HOB ELEVATED, SIDE RAILS UP X3, AND CALL LIGHT AND TABLE WITHIN REACH. ALL NEEDS MET AT THIS TIME
[2022-08-25 20:00] VITALS: BP 136/87
[2022-08-26] MEDS: IV NS 0.9% 1,000 ML IV PRN ×2 (03:05→18:03)
[2022-08-26] MEDS: VANCOMYCIN HCL 0.75 GM in IV D5W 250 ML IV SCH ×2 (03:42→16:04)
--- NOTE | 2022-08-26 06:30 | NUR ---
MS RN CLOSING NOTE PT AWAKE IN BED. A/O X1, NON VERBAL, AND BRAZILIAN SPEAKING. PT STABLE ON ROOM AIR. NO SOB OR S/S OF RESPIRATORY DISTRESS. BREATHING EVEN AND UNLABORED. IV ACCESS LFA 18G, INTACT AND PATENT, RUNNING NS @ 75 ML/HR. WITH CONDOM CATH DRAINING URINE BY GRAVITY, DRAINED 500 ML THIS SHIFT. BILATERAL FOOT DRESSINGS C/D/I. ALL DUE MEDS GIVEN ORDERED. KEPT CLEAN AND DRY. SAFETY PRECAUTIONS IN PLACE AT ALL TIMES. BED IN LOWEST LOCKED POSITION, HOB ELEVATED, SIDE RAILS UP X3, AND CALL LIGHT AND TABLE WITHIN REACH. ALL NEEDS MET AT THIS TIME AND WILL ENDORSE TO ONCOMING NURSE FOR RIA.
--- NOTE | 2022-08-26 07:39 | NUR ---
MS RN OPENING NOTE Patient in bed, asleep. Patient non-verbal per assistant shift supervisor report. On room air, breathing evenly and unlabored. No SOB or s/s of distress noted. IV access on LFA #18 infusing NS at 75 ml/hr. Condom catheter in palce draining to a yellow colored urine. Safety precautions in place: be din low, locked position; siderails up; call light within reach. Will continue to monitor.
[2022-08-26 08:00] VITALS: BP 164/86
[2022-08-26] MEDS: PANTOPRAZOLE 40 MG TABLET.DR PO SCH (08:43)
[2022-08-26] MEDS: FINASTERIDE (5 MG) 5 MG TABLET PO SCH (08:43)
[2022-08-26] MEDS: BETHANECHOL CHLORIDE (25 MG) 25 MG TABLET PO SCH ×3 (08:43→17:56)
[2022-08-26] MEDS: ARIPIPRAZOLE 5 MG TABLET PO SCH (08:44)
[2022-08-26] MEDS: CYANOCOBALAMIN 500 MCG TABLET PO SCH (08:44)
[2022-08-26] MEDS: CARBIDOPA/LEVODOPA 25/100 MG 1 UDTAB PO SCH ×4 (08:44→20:45)
[2022-08-26] MEDS: METOPROLOL TARTRATE 25 MG TABLET PO SCH ×2 (08:44→17:56)
[2022-08-26] MEDS: MEGESTROL ACETATE 40 MG TABLET PO SCH ×3 (08:44→17:56)
[2022-08-26] MEDS: ASPIRIN 81 MG TAB.CHEW PO SCH (08:44)
[2022-08-26] MEDS: ENSURE ENLIVE 237 ML LIQUID (VANILLA) PO SCH ×2 (08:44→17:57)
[2022-08-26] MEDS: CLOTRIMAZOLE 1% 15 GM TUBE TP SCH ×2 (08:45→17:57)
[2022-08-26] MEDS: HYDROGEL DRESSING 90 GM TUBE TP SCH ×2 (08:45→23:46)
[2022-08-26] MEDS: APIXABAN 5 MG TABLET PO SCH ×2 (08:47→17:55)
--- NOTE | 2022-08-26 10:05 | NUR ---
RN NOTE Patient's temp this AM is 99.6 F. Cooling measures provided. Temp rechecked 98.9 F. Will continue to monitor.
[2022-08-26 16:12] VITALS: BP 126/64
--- NOTE | 2022-08-26 19:22 | NUR ---
MS RN CLOSING NOTE Patient in bed, asleep. Patient non-verbal. Stable on room air, breathing evenly and unlabored. No SOB or s/s of distress noted. IV access on LFA #18 infusing NS at 75 ml/hr. Condom catheter in palce draining to a yellow colored urine with an output of 550 cc. Due meds given. Patient kept clean and dry. Wound care done, as ordered. Turned and repositioned, as tolerated. Safety precautions in place: be din low, locked position; siderails up; call light within reach. Will endorse to shift coordinator nurse for RIA.
[2022-08-26 20:00] VITALS: BP 133/69
[2022-08-26] MEDS: THERAHONEY GEL 1.5 OZ TUBE TP SCH (22:30)
--- NOTE | 2022-08-26 23:47 | NUR ---
order came in at 2200 for THERAHONEY GEL TO THE RIGHT HIP, NOT AVAILABLE TONIGHT. Applied Skintegrity to the right hip and mepilex
[2022-08-27] MEDS: VANCOMYCIN HCL 0.75 GM in IV D5W 250 ML IV SCH ×2 (04:15→15:16)
--- NOTE | 2022-08-27 06:15 | NUR ---
CLOSING NOTES: ALERT AND ORIENTATED TO SELF A LEG AND ARMS CONRTARCTED CLOSELY TO THE BODY RIGHT HIP DEEP PINK IN COLOR MEPLIXEX IN PLACE INCONTINENT URINE LARGE AMOUNT DRESSING ADORE FEET
--- NOTE | 2022-08-27 07:29 | NUR ---
MS RN OPENING NOTE RECEIVED PT ASLEEP IN BED, EASILY AROUSED. PT IS A/O X1, REORIENTED PT NEEDED. PT IS ON ROOM AIR, TOLERATING WELL. NO SOB NOTED. NOT IN ANY SIGN OF RESPIRATORY DISTRESS. IV ACCESS ON LFA G#18 INTACT AND PATENT WITH NS INFUSING AT 75ML/HR. SAFETY MEASURES IN PLACE: BED IN LOWEST AND LOCKED POSITION, SIDE RAILS UP X2, BED ALARM ON, AND CALL LIGHT WITHIN REACH. WILL CONTINUE PT WITH PLAN OF CARE.
[2022-08-27 08:00] VITALS: BP 147/63
[2022-08-27 08:02] LABS: CALCIUM, SERUM 8.7 mg/dL (8.5-10.1); CREATININE 0.7 mg/dL (0.6-1.3); POTASSIUM 3.4 mmol/L (3.5-5.1)
[2022-08-27] MEDS: PANTOPRAZOLE 40 MG TABLET.DR PO SCH (08:28)
[2022-08-27] MEDS: ARIPIPRAZOLE 5 MG TABLET PO SCH (08:39)
[2022-08-27] MEDS: METOPROLOL TARTRATE 25 MG TABLET PO SCH ×2 (08:40→16:58)
[2022-08-27] MEDS: MEGESTROL ACETATE 40 MG TABLET PO SCH ×3 (08:40→16:56)
[2022-08-27] MEDS: CYANOCOBALAMIN 500 MCG TABLET PO SCH (08:40)
[2022-08-27] MEDS: FINASTERIDE (5 MG) 5 MG TABLET PO SCH (08:40)
[2022-08-27] MEDS: CARBIDOPA/LEVODOPA 25/100 MG 1 UDTAB PO SCH ×4 (08:40→21:03)
[2022-08-27] MEDS: ASPIRIN 81 MG TAB.CHEW PO SCH (08:40)
[2022-08-27] MEDS: CLOTRIMAZOLE 1% 15 GM TUBE TP SCH ×2 (08:41→16:57)
[2022-08-27] MEDS: THERAHONEY GEL 1.5 OZ TUBE TP SCH (08:41)
[2022-08-27] MEDS: BETHANECHOL CHLORIDE (25 MG) 25 MG TABLET PO SCH ×3 (08:41→16:56)
[2022-08-27] MEDS: ENSURE ENLIVE 237 ML LIQUID (VANILLA) PO SCH ×2 (08:42→16:57)
[2022-08-27] MEDS: APIXABAN 5 MG TABLET PO SCH ×2 (08:44→16:58)
[2022-08-27] MEDS ORDERED: POTASSIUM CHLORIDE 20 MEQ TAB.PRT.SR PO SCH (11:30)
[2022-08-27] MEDS: IV NS 0.9% 1,000 ML IV PRN (13:26)
--- NOTE | 2022-08-27 15:47 | NUR ---
RN NOTE TELEPHONE CONSENT OBTAINED FROM SON TYLER WEST FOR SERIAL DEBRIDEMENT OF RIGHT HIP. RUDY LOPEZ SIGNED SECONDARY WITNESSED TO TELEPHONE CONSENT.
[2022-08-27 16:00] VITALS: BP 113/50
--- NOTE | 2022-08-27 18:49 | NUR ---
MS RN CLOSING NOTE PT ASLEEP IN BED, EASILY AROUSED. PT IS A/O X1, REORIENTED PT NEEDED. PT IS ON ROOM AIR, TOLERATING WELL. NO SOB NOTED. NOT IN ANY SIGN OF RESPIRATORY DISTRESS. IV ACCESS ON LFA G#18 INTACT AND PATENT WITH NS INFUSING AT 75ML/HR. ALL NEEDS ATTENDED. KEPT CLEAN AND COMFORTABLE AT ALL TIMES. TURNED AND REPOSITIONED Q2HRS AND NEEDED. SAFETY MEASURES IN PLACE: BED IN LOWEST AND LOCKED POSITION, SIDE RAILS UP X2, BED ALARM ON, AND CALL LIGHT WITHIN REACH. WILL ENDORSED TO TEXTILE MACHINERY INSTRUCTOR NURSE FOR RIA.
[2022-08-27 20:00] VITALS: BP 109/60
[2022-08-28] MEDS: VANCOMYCIN HCL 0.75 GM in IV D5W 250 ML IV SCH ×2 (03:51→16:07)
[2022-08-28] MEDS: IV NS 0.9% 1,000 ML IV PRN ×2 (03:57→20:50)
--- NOTE | 2022-08-28 06:08 | NUR ---
closing notes: contracted arms and legs to the chest eyes open no focus right hand swollen elecated on 2 pillows incontinent of stool and UA kept clean and dry consent done 08/27 for pending right hip debridement eats and drinks with total assist asp precautions dressing on the toes CDI
[2022-08-28 07:00] VITALS: BP 137/61
[2022-08-28 07:10] LABS: CALCIUM, SERUM 8.2 mg/dL (8.5-10.1); CARBON DIOXIDE 23 mmol/L (21-32); CHLORIDE 106 mmol/L (98-107); CREATININE 0.7 mg/dL (0.6-1.3); GLUCOSE 113 mg/dL (74-106); POTASSIUM 3.4 mmol/L (3.5-5.1); SODIUM SERUM 137 mmol/L (136-145); UREA NITROGEN, BLOOD 9 mg/dL (7-18)
--- NOTE | 2022-08-28 07:30 | NUR ---
RN OPENING NOTES RECEIVED PATIENT IN BED, ASLEEP. EASILY AROUSED. ALERT TO SELF. NO SIGNS OF ACUTE DISTRESS NOTED. ON ROOM AIR, BREATHING EVEN AND UNLABORED. NO S/SX OF PAIN OR DISCOMFORT NOTED. NOTED WITH IV ACCESS ON LEFT FOREARM #18G, INTACT AND PATENT WITH NS @75 ML/HR RUNNING. SAFETY MEASURE IN PLACE. BED IN LOW AND LOCKED POSITION, SIDE RAILS UP X3, CALL LIGHT PLACED WITHIN EASY REACH. WILL CONTINUE TO MONITOR PATIENT.
[2022-08-28] MEDS: FINASTERIDE (5 MG) 5 MG TABLET PO SCH (09:05)
[2022-08-28] MEDS: ARIPIPRAZOLE 5 MG TABLET PO SCH (09:05)
[2022-08-28] MEDS: CARBIDOPA/LEVODOPA 25/100 MG 1 UDTAB PO SCH ×4 (09:06→20:50)
[2022-08-28] MEDS: ASPIRIN 81 MG TAB.CHEW PO SCH (09:06)
[2022-08-28] MEDS: PANTOPRAZOLE 40 MG TABLET.DR PO SCH (09:06)
[2022-08-28] MEDS: APIXABAN 5 MG TABLET PO SCH ×2 (09:06→17:29)
[2022-08-28] MEDS: BETHANECHOL CHLORIDE (25 MG) 25 MG TABLET PO SCH ×3 (09:06→17:30)
[2022-08-28] MEDS: CYANOCOBALAMIN 500 MCG TABLET PO SCH (09:06)
[2022-08-28] MEDS: CLOTRIMAZOLE 1% 15 GM TUBE TP SCH ×2 (09:07→17:51)
[2022-08-28] MEDS: HYDROGEL DRESSING 90 GM TUBE TP SCH (09:08)
[2022-08-28] MEDS: ENSURE ENLIVE 237 ML LIQUID (VANILLA) PO SCH ×2 (09:10→17:50)
[2022-08-28] MEDS: THERAHONEY GEL 1.5 OZ TUBE TP SCH (09:10)
[2022-08-28] MEDS: MEGESTROL ACETATE 40 MG TABLET PO SCH ×3 (09:13→17:35)
[2022-08-28] MEDS: METOPROLOL TARTRATE 25 MG TABLET PO SCH ×2 (09:15→17:34)
[2022-08-28] MEDS ORDERED: POTASSIUM CHLORIDE 20 MEQ TAB.PRT.SR PO SCH (10:00)
[2022-08-28 16:00] VITALS: BP 122/68
[2022-08-28] MEDS: PROSOURCE / PROSTAT (PYXIS) 30 ML UDC GT SCH (17:55)
--- NOTE | 2022-08-28 18:52 | NUR ---
RN CLOSING NOTE PATIENT RESTING IN BED. ALERT TO SELF. NO SIGNS OF ACUTE DISTRESS NOTED. REMAINS STABLE ON ROOM AIR, NO SOB NOTED. BREATHING EVEN AND UNLABORED. NO S/SX OF PAIN OR DISCOMFORT. WITH IV ACCESS ON LEFT FOREARM #18G, INTACT AND PATENT WITH NS @75 ML/HR RUNNING. ALL DUE MEDS GIVEN, TOLERATED WELL. ASPIRATION PRECAUTIONS OBSERVED. TURNED AND REPOSITIONED Q2 HR. SAFETY MEASURE IN PLACE. BED IN LOW AND LOCKED POSITION, SIDE RAILS UP X3, CALL LIGHT PLACED WITHIN EASY REACH. WILL ENDORSE TO NEXT SHIFT FOR CONTINUITY OF CARE.
--- NOTE | 2022-08-28 19:30 | NUR ---
MS RN OPENING NOTES RECEIVED PT AWAKE IN BED. A/O X1, ORIENTED TO PERSON ONLY, [place] SPEAKING. NO SIGNS OF ACUTE DISTRESS NOTED. ON RA WITH NO SOB NOTED. BREATHING EVEN AND UNLABORED. NO S/SX OF PAIN OR DISCOMFORT. WITH IV ACCESS ON LEFT FOREARM #18G, INTACT AND PATENT WITH NS @75 ML/HR RUNNING. EXTREMITIES CONTRACTED. ASPIRATION PRECAUTIONS OBSERVED. SAFETY MEASURES IN PLACE: BED IN LOW AND LOCKED POSITION, SIDE RAILS UP X3, CALL LIGHT PLACED WITHIN EASY REACH. WILL CONTINUE TO MONITOR AND ASSIST.
[2022-08-28 20:00] VITALS: BP 143/81
[2022-08-29] MEDS: VANCOMYCIN HCL 0.75 GM in IV D5W 250 ML IV SCH (03:38)
--- NOTE | 2022-08-29 07:02 | NUR ---
MS RN CLOSING NOTES PT SLEEPING IN BED AT THIS TIME, EASILY AROUSABLE. A/O X1, ORIENTED TO PERSON ONLY, [place] SPEAKING. NO SIGNS OF ACUTE DISTRESS NOTED. STABLE ON RA WITH NO SOB NOTED. BREATHING EVEN AND UNLABORED. NO S/SX OF PAIN OR DISCOMFORT. WITH IV ACCESS ON LEFT FOREARM #18G, INTACT AND PATENT WITH NS @75 ML/HR RUNNING. LOWER EXTREMITIES CONTRACTED. ASPIRATION PRECAUTIONS OBSERVED. ALL CARE PROVIDED AND MEDS TOLERATED WELL. TURNED AND REPOSITIONED Q2HR. SAFETY MEASURES MAINTAINED: BED IN LOW AND LOCKED POSITION, SIDE RAILS UP X3, CALL LIGHT PLACED WITHIN EASY REACH. WILL ENDORSE RIA TO DAY SHIFT NURSE.
[2022-08-29 07:32] LABS: CALCIUM, SERUM 8.4 mg/dL (8.5-10.1); CREATININE 0.6 mg/dL (0.6-1.3); POTASSIUM 3.5 mmol/L (3.5-5.1)
[2022-08-29 07:37] VITALS: BP_SYST 103; BP_SYST 142; BP_DIAS 44; BP_DIAS 81
--- NOTE | 2022-08-29 08:00 | NUR ---
MS RN OPENING NOTES PT SLEEPING IN BED AT THIS TIME, EASILY AROUSABLE. A/O X1, ORIENTED TO PERSON ONLY, [place] SPEAKING. NO SIGNS OF ACUTE DISTRESS NOTED. STABLE ON RA WITH NO SOB NOTED. BREATHING EVEN AND UNLABORED. NO S/SX OF PAIN OR DISCOMFORT. WITH IV ACCESS ON LEFT FOREARM #18G, INTACT AND PATENT WITH NS @75 ML/HR RUNNING. LOWER EXTREMITIES CONTRACTED. ASPIRATION PRECAUTIONS OBSERVED. SAFETY MEASURES MAINTAINED: BED IN LOW AND LOCKED POSITION, SIDE RAILS UP X3, CALL LIGHT PLACED WITHIN EASY REACH. WILL CONTINUE TO MONITOR.
[2022-08-29] MEDS: PANTOPRAZOLE 40 MG TABLET.DR PO SCH (08:18)
[2022-08-29] MEDS: FINASTERIDE (5 MG) 5 MG TABLET PO SCH (09:45)
[2022-08-29] MEDS: BETHANECHOL CHLORIDE (25 MG) 25 MG TABLET PO SCH ×2 (09:45→13:32)
[2022-08-29] MEDS: MEGESTROL ACETATE 40 MG TABLET PO SCH ×2 (09:45→13:31)
[2022-08-29] MEDS: ASPIRIN 81 MG TAB.CHEW PO SCH (09:45)
[2022-08-29] MEDS: CARBIDOPA/LEVODOPA 25/100 MG 1 UDTAB PO SCH ×2 (09:45→13:32)
[2022-08-29] MEDS: ARIPIPRAZOLE 5 MG TABLET PO SCH (09:45)
[2022-08-29] MEDS: PROSOURCE / PROSTAT (PYXIS) 30 ML UDC GT SCH (09:45)
[2022-08-29] MEDS: CYANOCOBALAMIN 500 MCG TABLET PO SCH (09:46)
[2022-08-29] MEDS: METOPROLOL TARTRATE 25 MG TABLET PO SCH (09:46)
[2022-08-29] MEDS: ENSURE ENLIVE 237 ML LIQUID (VANILLA) PO SCH (09:47)
[2022-08-29] MEDS: APIXABAN 5 MG TABLET PO SCH (09:49)
[2022-08-29] MEDS: THERAHONEY GEL 1.5 OZ TUBE TP SCH (10:22)
[2022-08-29] MEDS: CLOTRIMAZOLE 1% 15 GM TUBE TP SCH (10:22)
[2022-08-29] MEDS: HYDROGEL DRESSING 90 GM TUBE TP SCH (10:22)
[2022-08-29] MEDS ORDERED: CLOT15CR35 TP (11:46)
[2022-08-29] MEDS ORDERED: GEL100GE MC (11:46)
[2022-08-29] MEDS ORDERED: AMIN30LI25 PO (11:46)
[2022-08-29] MEDS ORDERED: COLL30OI TP (11:46)
[2022-08-29] MEDS ORDERED: DOXY100T2 PO (11:46)
--- NOTE | 2022-08-29 14:00 | NUR ---
DISCHARGED NOTE DISCHARGED PATIENT TO [facility] IN STABLE CONDITION. A/OX1. NO RESPIRATORY OR CARDIAC DISTRESS NOTED. ALL BELONGINGS ACCOUNTED TO PATIENT. DISCHARGED INSTRUCTION RELAYED TO GARY GRANT CM [facility]. IV ACCESS REMOVED, NO BLEEDING OR SWELLING NOTED. PATIENT LEFT THE UNIT VIA GURNEY ACCOMPANIED BY AMBULANCE STAFF. DISCHARGED.
[2022-08-29 15:23] VITALS: BP 98/56
== END 2022-08-29 15:40 | disposition home health service (06) | DRG 299 ==
LOC: ER 13:32 → MED 15:10
PROVIDERS: ADMIT Nurse Practitioner Acute Care; ATTEND Student in an Organized Health Care Education/Training Program
DX: I70.263 Atherosclerosis of native arteries of extremities with gangrene, bilateral legs (principal); E43 Unspecified severe protein-calorie malnutrition; L89.213 Pressure ulcer of right hip, stage 3; G93.41 Metabolic encephalopathy; R53.2 Functional quadriplegia; L03.115 Cellulitis of right lower limb; D68.59 Other primary thrombophilia; L03.116 Cellulitis of left lower limb; R64 Cachexia; G20 Parkinson's disease; F02.80 Dementia in other diseases classified elsewhere, unspecified severity, without behavioral disturbance, psychotic disturbance, mood disturbance, and anxiety; L97.529 Non-pressure chronic ulcer of other part of left foot with unspecified severity; L97.519 Non-pressure chronic ulcer of other part of right foot with unspecified severity; F01.50 Vascular dementia, unspecified severity, without behavioral disturbance, psychotic disturbance, mood disturbance, and anxiety; E87.6 Hypokalemia; E88.09 Other disorders of plasma-protein metabolism, not elsewhere classified; M24.561 Contracture, right knee; M24.562 Contracture, left knee; I10 Essential (primary) hypertension; I48.91 Unspecified atrial fibrillation; K21.9 Gastro-esophageal reflux disease without esophagitis; Z86.16 Personal history of COVID-19; Z86.73 Personal history of transient ischemic attack (TIA), and cerebral infarction without residual deficits; Z85.038 Personal history of other malignant neoplasm of large intestine; N40.0 Benign prostatic hyperplasia without lower urinary tract symptoms; Z79.01 Long term (current) use of anticoagulants; Z79.899 Other long term (current) drug therapy
CPT/HCPCS: 36415; 73630-TC; 80048-TC; 80076-TC; 80202-TC; 83605-TC; 83735-TC; 84100-TC; 85025-TC; 85730-TC; 87040-TC; 87081-TC; A4223; A4349; A6248; A6403; C9803; G0378; J2543; J3370; J7030; J7060